=== PATIENT | female | born 1935 | race Caucasian/White ===

== ENCOUNTER 2019-02-01 17:05 | Emergency (ER) | payer MEDICARE, MEDICAID ==
--- NOTE | 2019-02-01 17:24 | ED ---
Back Pain - HPI Summary HPI Summary: 83 yo female presents [place] [facility] [place] for low back pain. Pt tells me that for the last few years she has had some mild low back pain, but nothing significant. She has a home health aide that also takes her places as pt does not drive. On 01/23 she was trying to get into the truck of her aide and in stepping up into the truck, felt a pull in her lower back. Has had severe pain since that time. She saw her PCP on 01/28 for this and was given a muscle relaxer with no relief of discomfort. She saw her PCP again on 01/30 and tells me that X-Rays were done, but pt has not gotten results of these. She tried calling her PCP today for results and they advised her to come to the ED as she was still in severe pain. She lives alone in a care home apartment. She ambulates with a walker at baseline and is still able to do this. Pain is worse with going from a lying/ sitting to a standing position. She has no radiation of pain. No numbness or tingling. Denies fall, saddle anesthesia, loss of bowel/bladder control, dysuria. - History of Current Complaint Chief Complaint: EDBackInjuryPain Stated Complaint: LOWER BACK PAIN X1 WEEK PER EMS Time Seen by Provider: 02/01/19 17:24 Hx Obtained From: Patient Onset/Duration: Sudden Onset Severity Initially: Severe Severity Currently: Severe Pain Intensity: 9 Pain Scale Used: 0-10 Numeric - Allergies/Home Medications Allergies/Adverse Reactions: Allergies Allergy/AdvReac Type Severity Reaction Status Date / Time aspirin Allergy Bleeding Verified 02/01/19 17:20 Home Medications: Home Medications Tizanidine HCl 1 tab PO TID 02/01/19 [History Confirmed 02/01/19] predniSONE TAB* [Deltasone 20 MG TAB*] 40 mg PO DAILY 02/01/19 [History Confirmed 02/01/19] PMH/Surg Hx/FS Hx/Imm Hx Endocrine/Hematology History: Denies: Hx Anticoagulant Therapy, Hx Blood Disorders, Hx Anemia Cardiovascular History: Denies: Hx Angina, Hx Cardiac Arrest, Hx Congestive Heart Failure, Hx Hypertension, Other Cardiovascular Problems/Disorders Respiratory History: Denies: Hx Chronic Obstructive Pulmonary Disease (COPD), Other Respiratory Problems/Disorders GI History: Reports: Hx Gastroesophageal Reflux Disease - ON MEDS Denies: Other GI Disorders History: Denies: Hx Chronic Renal Failure, Hx Dialysis Musculoskeletal History: Reports: Hx Arthritis - BACK, NELIDA KNEES REPLACED Sensory History: Reports: Hx Cataracts - NELIDA, Hx Contacts or Glasses - GLASSES Denies: Hx Hearing Aid Opthamlomology History: Reports: Hx Cataracts - NELIDA, Hx Contacts or Glasses - GLASSES Neurological History: Reports: Hx Migraine - MANY YEARS AGO Denies: Other Neuro Impairments/Disorders Psychiatric History: Denies: Hx Anxiety, Hx Depression - Surgical History Surgical History: Yes Surgery Procedure, Year, and Place: N[place] VEIN STRIPPING[place] [facility] NELIDA KNEE REPACEMENTS, 2001, [place] [place], 28 YRS AGO, [place]. HERNIA , [facility] NELIDA BREASTS BX. APPENDECTOMY. FACIAL SKIN CANCER REMOVED Hx Anesthesia Reactions: Yes - N/V Infectious Disease History: No Infectious Disease History: Denies: Traveled Outside the [place] in Last 30 Days - Family History Known Family History: Positive: Unknown - Social History Occupation: Retired Lives: Alone Alcohol Use: Rare Alcohol Amount: 2 BEERS A WEEK Substance Use Type: Reports: None Amount Used/How Often: 1/2 PACK A DAY Length of Time of Smoking/Using Tobacco: 35 YEARS Have You Smoked in the Last Year: Yes Review of Systems Constitutional: Negative Eyes: Negative ENT: Negative Cardiovascular: Negative Respiratory: Negative Gastrointestinal: Negative Genitourinary: Negative Musculoskeletal: Other - Low back pain Skin: Negative Neurological: Negative Psychological: Normal All Other Systems Reviewed And Are Negative: Yes Physical Exam - Summary Physical Exam Summary: GENERAL: NAD. WDWN. No pain distress. SKIN: No rashes, sores, lesions, or open wounds. NECK: Supple. FROM. Nontender. No lymphadenopathy. CHEST: CTAB. No r/r/w. No accessory muscle use. Breathing comfortably and in no distress. CV: RRR. Without m/r/g. Pulses intact. Cap refill <2seconds ABDOMEN: Soft. NTTP. No distention or guarding. No CVA tenderness. Bowel sounds present MSK: TTP over lumbar paraspinal muscles. No midline vertebral tenderness. Pain with flexion and extension of spine. Negative SLR. Strength 5/5 B/L LEs including dorsiflexion and plantar flexion. FROM B/L LEs. No edema. Pain in lower back with knee flexion. NEURO: Alert. Sensations intact B/L LEs L3-S1. Reflexes intact. Rectal tone intact. PSYCH: Age appropriate behavior. Triage Information Reviewed: Yes Vital Signs On Initial Exam: Initial Vitals Temp Pulse Resp BP Pulse Ox 96.9 F 73 18 145/89 92 02/01/19 17:18 02/01/19 17:18 02/01/19 17:18 02/01/19 17:18 02/01/19 17:18 Vital Signs Reviewed: Yes Diagnostics - Vital Signs Vital Signs (72 hours) 02/01/19 02/01/19 02/01/19 17:18 17:27 17:28 Temperature 96.9 F Pulse Rate 73 69 70 Respiratory 18 Rate Blood Pressure 145/89 149/98 (mmHg) O2 Sat by Pulse 92 94 95 Oximetry 02/01/19 02/01/19 02/01/19 17:58 18:00 18:28 Temperature Pulse Rate 74 73 73 Respiratory Rate Blood Pressure 151/88 157/100 (mmHg) O2 Sat by Pulse 96 94 95 Oximetry 02/01/19 02/01/19 02/01/19 18:58 19:00 19:29 Temperature Pulse Rate 72 70 71 Respiratory Rate Blood Pressure 155/97 181/106 (mmHg) O2 Sat by Pulse 94 95 94 Oximetry 02/01/19 02/01/19 02/01/19 19:58 20:00 20:01 Temperature Pulse Rate 73 71 74 Respiratory Rate Blood Pressure 181/117 180/93 (mmHg) O2 Sat by Pulse 91 93 95 Oximetry 02/01/19 02/01/19 02/01/19 20:43 20:58 21:00 Temperature Pulse Rate 75 79 79 Respiratory Rate Blood Pressure 179/95 164/80 (mmHg) O2 Sat by Pulse 93 93 94 Oximetry 02/01/19 21:25 Temperature 97.7 F Pulse Rate 79 Respiratory 18 Rate Blood Pressure 164/80 (mmHg) O2 Sat by Pulse 95 Oximetry - Laboratory Lab Results: Laboratory Tests 02/01/19 02/01/19 18:32 18:32 WBC 9.1 RBC 4.27 Hgb 13.0 Hct 38 MCV 90 MCH 30 MCHC 34 RDW 14 Plt Count 236 MPV 8.3 Neut % (Auto) 82.5 Lymph % (Auto) 8.7 Craig % (Auto) 8.1 Eos % (Auto) 0.0 Baso % (Auto) 0.7 Absolute Neuts (auto) 7.5 Absolute Lymphs (auto) 0.8 L Absolute Monos (auto) 0.7 Absolute Eos (auto) 0.0 Absolute Basos (auto) 0.1 Absolute Nucleated RBC 0.0 Nucleated RBC % 0.0 Sodium 130 L Potassium 4.3 Chloride 91 L Carbon Dioxide 31 Anion Gap 8 BUN 19 Creatinine 0.95 Est GFR ( Amer) 68.3 Est GFR (Non-Af Amer) 56.5 BUN/Creatinine Ratio 20.0 Glucose 121 H Calcium 9.4 Total Bilirubin 0.40 AST 20 ALT 17 Alkaline Phosphatase 55 Total Protein 6.8 Albumin 3.9 Globulin 2.9 Albumin/Globulin Ratio 1.3 Result Diagrams: 02/01/19 18:32 02/01/19 18:32 Lab Statement: Any lab studies that have been ordered have been reviewed, and results considered in the medical decision making process. Re-Evaluation - Re-Evaluation First Eval Re-Evaluation Time: 19:41 Change: Improved Comment: Discussed results of CT and labs with pt and daughter Kathy present. 1L NS ordered given slightly low sodium. Pt states pain is improved s/p tramadol and is tolerating this well without lightheadedness, nausea, or confusion. Second Eval Re-Evaluation Time: 20:00 Change: Unchanged Comment: Notified of BP increasing since initial. She has no headache, dizziness , SOB, chest pain, numbness, or vision changes. No hx of HTN. Order for hydralazine Back Pain Course/Dx - Course Course Of Treatment: At this time she is not exhibiting any signs of cauda equina and suspect muscle strain vs vertebral fracture. In the ED course she was given tramadol for her discomfort. CT results as above. 1L NS given for slight hyponatremia. She tolerated tramadol very well without adverse effects and good relief of pain. I discussed discharge with pt and her daughter - they both feel comfortable with pt being discharged to home and pt feels comfortable using her walker at home. Her BP was elevated during the ED course and 10mg of hydralazine was given - BP improved significantly to 164/80... she remained asmyptomatic. She was ambulated with a walker prior to discharge and reported feeling much better and felt stable on her feet. Will dc with rx for tramadol and lidoderm patch. Recommend f/u with PCP in 3-5 days for recheck and eval of elevated BP found today. - Diagnoses Provider Diagnoses: L1 vertebral fracture, Low back pain, Elevated blood pressure reading Discharge - Sign-Out/Discharge Documenting (check all that apply): Patient Departure Patient Received Moderate/Deep Sedation with Procedure: No - Discharge Plan Condition: Stable Disposition: HOME Prescriptions: Lidocaine PATCH 5%* [Lidoderm 5% Patch*] 1 patch TRANSDERM DAILY PRN #10 patch PRN Reason: Pain traMADol TAB* [Ultram*] 50 mg PO Q12H PRN #8 tab MDD 2 PRN Reason: Pain Patient Education Materials: Vertebral Compression Fracture (ED), Acute Low Back Pain (ED), Hypertension in the Older Adult (ED) Referrals: Ross Martinez MD [Primary Care Provider] - 3 Days Additional Instructions: If you develop a fever, shortness of breath, chest pain, new or worsening symptoms - please call your PCP or go to the ED immediately. Your blood pressure was high at todays visit. Please see your primary provider within 4 weeks for recheck and re-evaluation. Rest and ice your back to reduce pain. Take the medications as prescribed. Please follow up with your primary doctor in 3 days for a recheck of your pain and elevated blood pressure. If you develop worsening pain, numbness, tingling, weakness, loss of bladder or bowel control - please call 911 or return to the ER - Billing Disposition and Condition Condition: STABLE Disposition: Home
[2019-02-01] MEDS ORDERED: traMADol TAB* 50 MG PO ONE (17:51)
[2019-02-01 18:44] LABS: ABS Basophils 0.1 10^3/ul (0-0.2); ABS Lymphocytes 0.8 10^3/ul (1.0-4.8); ABS Monocytes 0.7 10^3/ul (0-0.8); ABS Neutrophils 7.5 10^3/ul (1.5-7.7); Hematocrit 38 % (35-47); Lymphocyte % 8.7 %; Mean Corpuscular HGB Conc 34 g/dL (31-36); Mean Corpuscular Hemoglobin 30 pg (27-31); Mean Corpuscular Volume 90 fL (80-97); Mean Platelet Volume 8.3 fL (7.4-10.4); Platelet Count 236 10^3/uL (150-450); Red Blood Count 4.27 10^6 /uL (3.70-4.87); Red Cell Distribution Width 14 % (10-15); White Blood Count 9.1 10^3/uL (3.5-10.8)
[2019-02-01 19:19] LABS: Albumin 3.9 g/dL (3.2-5.2); Albumin/Globulin Ratio 1.3 (1-3); Calcium 9.4 mg/dL (8.6-10.3); EGFR African American 68.3 (>60); EGFR Non-African American 56.5 (>60); Globulin 2.9 g/dL (2-4); Potassium 4.3 mmol/L (3.5-5.0); Total Bilirubin 0.4 mg/dL (0.2-1.0); Total Protein 6.8 g/dL (6.4-8.9)
[2019-02-01] MEDS ORDERED: NS 0.9% 1000 ML** 1,000 ML IV ONE (19:26)
[2019-02-01] MEDS ORDERED: hydrALAZINE IV* 20 MG/ML VIAL IV SLOW PU ONE (20:18)
[2019-02-01 21:00] VITALS: BP 164/80
== END 2019-02-01 21:25 | disposition home or self-care (01) ==
LOC: ED 17:05
DX: S32.010A Wedge compression fracture of first lumbar vertebra, initial encounter for closed fracture (principal); X58.XXXA Exposure to other specified factors, initial encounter; Y92.9 Unspecified place or not applicable; M51.37 Other intervertebral disc degeneration, lumbosacral region; M54.5 Low back pain; R03.0 Elevated blood-pressure reading, without diagnosis of hypertension; K21.9 Gastro-esophageal reflux disease without esophagitis; Z96.653 Presence of artificial knee joint, bilateral; Z88.6 Allergy status to analgesic agent
CPT/HCPCS: 36415; 72131; 80053; 85025; 96361; 96374; 99283; A9270-GY; J0360